=== PATIENT | female | born 1975 | race Caucasian/White ===

== ENCOUNTER → 2016-10-03 | Outpatient (CLI) | payer BC ==
[2016-10-03 12:37] LABS: MEAN CELL VOLUME 92 fl (80.0-100.0); MEAN CORPUSCULAR HGB CONC 33 g/dl (33.0-37.0); MEAN PLATELET VOLUME 10.7 fl (7.4-10.4); PLATELET COUNT 376 K/mm3 (130-400); RED BLOOD COUNT 3.79 M/mm3 (4.10-5.30); REDCELL DISTRIBUTION WIDTH-CV 12.5 % (11.5-14.5); WHITE BLOOD COUNT 8.8 K/mm3 (4.8-10.8)
[2016-10-03 12:40] LABS: ADJUSTED CALCIUM 9.5 mg/dL (8.4-10.2); ALBUMIN 4.3 gm/dL (3.5-5.0); BILIRUBIN,TOTAL 0.6 mg/dL (0.0-1.0); CALCIUM 9.7 mg/dL (8.4-10.2); CREATININE, serum 0.65 mg/dL (0.52-1.25); HEMATOCRIT 34.7 % (37.0-47.0); HEMOGLOBIN 11.5 g/dl (12.5-16.0); MEAN CORPUSCULAR HEMOGLOBIN 30 pg (27.0-31.0); POTASSIUM 3.9 mmol/L (3.4-5.0); TOTAL PROTEIN 8.5 gm/dL (6.4-8.2)
[2016-10-03 12:43] LABS: PH 5 (5-8); SQUAMOUS EPITHELIAL 0-2 /hpf; URINE APPEARANCE Clear; URINE BACTERIA Moderate /hpf; URINE BILIRUBIN Negative (NEGATIVE); URINE BLOOD 3+ (NEGATIVE); URINE COLOR Yellow; URINE GLUCOSE Negative (NEGATIVE); URINE KETONE 1+ (NEGATIVE); URINE RBC 20-50 /hpf; URINE UROBILINOGEN Negative (NEGATIVE)
== END ==
LOC: COL.LAB 11:49
DX: M54.5 Low back pain (principal); R00.2 Palpitations; R06.02 Shortness of breath

== ENCOUNTER → 2016-12-05 | Outpatient (CLI) | payer BC | LOC: COL.RAD 07:30 | DX: R31.21 Asymptomatic microscopic hematuria (principal); Z90.49 Acquired absence of other specified parts of digestive tract | CPT/HCPCS: Q9967 ==

== ENCOUNTER → 2016-12-07 | Outpatient (CLI) | payer BC | LOC: COL.RAD 09:24 | DX: Z53.9 Procedure and treatment not carried out, unspecified reason (principal) ==

== ENCOUNTER → 2017-03-12 | Outpatient (CLI) | payer BC | LOC: MC.RAD 08:40 | DX: Z12.31 Encounter for screening mammogram for malignant neoplasm of breast (principal) ==

== ENCOUNTER → 2018-04-05 | Outpatient (CLI) | payer BC | LOC: MC.RAD 13:13 | DX: Z12.31 Encounter for screening mammogram for malignant neoplasm of breast (principal) ==

== ENCOUNTER 2019-02-19 08:21 | Observation (INO) | payer BC ==
[~2019-02-19] VITALS: Ht 165.1 cm; Wt 64.3 kg
[2019-02-19 09:14] LABS: BASO % 0.3 % (0.0-2.0); EOS # 0.1 (0.0-0.7); EOS % 0.7 % (0-4.0); GRAN # 6.7 (1.4-6.5); GRAN % 73.6 % (42.2-75.2); HEMOGLOBIN 12.1 g/dl (12.5-16.0); LYMPH # 1.9 (1.2-3.4); LYMPH % 21.3 % (20.0-51.0); MEAN CELL VOLUME 94 fl (80.0-100.0); MEAN CORPUSCULAR HEMOGLOBIN 31 pg (27.0-31.0); MEAN CORPUSCULAR HGB CONC 34 g/dl (33.0-37.0); MEAN PLATELET VOLUME 10.4 fl (7.4-10.4); MONO # 0.4 (0.1-0.6); PLATELET COUNT 304 K/mm3 (130-400); RED BLOOD COUNT 3.85 M/mm3 (4.10-5.30); REDCELL DISTRIBUTION WIDTH-CV 12.9 % (11.5-14.5)
[2019-02-19 09:27] LABS: ALANINE AMINOTRANSFERASE < 6 U/L (9-52); ALKALINE PHOSPHATASE 45 U/L (50-136); ANION GAP 10 mmol/L (7-16); AST,SGOT 20 U/L (15-37); BILIRUBIN,TOTAL 0.4 mg/dL (0.0-1.0); BLOOD UREA NITROGEN 12 mg/dL (7-17); CALCIUM 8.9 mg/dL (8.4-10.2); CARBON DIOXIDE 22 mmol/L (22-30); CHLORIDE 108 mmol/L (98-107); CREATININE, serum 0.69 (0.52-1.25); GLUCOSE 96 mg/dL (74-106); POTASSIUM 4.1 mmol/L (3.4-5.0); SODIUM 140 mmol/L (137-145); TOTAL PROTEIN 7.5 gm/dL (6.4-8.2)
--- NOTE | 2019-02-19 12:36 | NUR ---
RECEIVED FROM KAYLENE OROZCO.
[2019-02-19 12:58] VITALS: BP 136/72; PULSE 69; TEMP 98.9
--- NOTE | 2019-02-19 13:46 | NUR ---
PT ARRIVED TO ROOM 316 VIA WHEELCHAIR.PT ORIENTED TO ROOM.FAMILY AT BEDSIDE.
--- NOTE | 2019-02-19 13:47 | NUR ---
PT TAKEN TO MRI
--- NOTE | 2019-02-19 14:10 | NUR ---
PT RETURNED TO ROOM FROM MRI.
[2019-02-19] MEDS ORDERED: LO LOESTRIN FE1 TAB PO (14:42)
--- NOTE | 2019-02-19 15:00 | NUR ---
Assessment complete.patient awake,a/ox3.denie pain or discomfort at this time.lung sounds clear to aus.breathing even and unlabored.neuro chesks WNL.patient reports numbness and tingling to left face and left upper and lower extremity.gait is stable.no visible deficit.patient denies any other concerns at this time.will continue to monitor.call light in reach
[2019-02-19 16:36] VITALS: BP 147/73; PULSE 77; TEMP 98.7
--- NOTE | 2019-02-19 18:18 | NUR ---
pt reports having anxiety r/t her Multiple sclerosis workout and mood is down. here rounding on patient at this time.pt has had family visiting all shift. will continue to monitor.call light in reach
--- NOTE | 2019-02-19 18:55 | NUR ---
report given to KAYLENE Melendez.
[2019-02-19 19:46] VITALS: BP 148/79; PULSE 68; TEMP 98.8
--- NOTE | 2019-02-19 20:02 | NUR ---
Resting in bed with family at bedside. Assessment complete. Lungs clear. Heart sounds normal. Bowels active x4. Pulses strong throughout. No edema. Hand property underwriter equal. Neuro check normal. Reports "tingling in left face, left arm, and left leg." Reports no change from previous feeling. Denies pain. Denies needs at this time. Will monitor.
--- NOTE | 2019-02-19 22:39 | NUR ---
Resting in bed. provided with water and sprite. Denies needs. call light in reach.
[2019-02-19 23:24] VITALS: BP 132/73; PULSE 68; TEMP 98.6
--- NOTE | 2019-02-20 04:18 | NUR ---
Resting in bed. Denies needs. Call light in reach.
[2019-02-20 04:28] VITALS: BP 129/74; PULSE 64; TEMP 98.6
--- NOTE | 2019-02-20 06:55 | NUR ---
RECEIVED REPORT FROM KAYLENE EVANS.
--- NOTE | 2019-02-20 07:07 | NUR ---
Report given to KAYLENE Huerta. Uneventful night. Tearful this AM. Denies needs. Call light in reach.
[2019-02-20 07:22] LABS: BASO % 0.4 % (0.0-2.0); EOS # 0.1 (0.0-0.7); EOS % 1.2 % (0-4.0); GRAN % 54.4 % (42.2-75.2); HEMATOCRIT 39.8 % (37.0-47.0); HEMOGLOBIN 13.1 g/dl (12.5-16.0); LYMPH # 2.7 (1.2-3.4); LYMPH % 37.4 % (20.0-51.0); MEAN CELL VOLUME 94 fl (80.0-100.0); MEAN CORPUSCULAR HEMOGLOBIN 31 pg (27.0-31.0); MEAN CORPUSCULAR HGB CONC 33 g/dl (33.0-37.0); MEAN PLATELET VOLUME 10.5 fl (7.4-10.4); MONO # 0.5 (0.1-0.6); MONO % 6.5 % (1.7-9.3); PLATELET COUNT 351 K/mm3 (130-400); RED BLOOD COUNT 4.24 M/mm3 (4.10-5.30)
--- NOTE | 2019-02-20 07:38 | NUR ---
Assessment complete.patient awake,a/ox3.denies pain or discomfort at this time.LSCTA.breathing even and unlabored.patient reports tingling to left side.gait remains stable.pt mood remains low regarding MS workup.lumbar puncture scheduled for late this morning.family at bedside.pt denies any need at this time.will continue to monitor.call light in reach
--- NOTE | 2019-02-20 09:35 | NUR ---
Initial visit; Patient and her thanked [employer] Operator for looking in on her and offering God's blessings.
[2019-02-20 09:50] VITALS: BP 121/73; BP 174/68; PULSE 69; PULSE 90; TEMP 98.2; TEMP 98.9
--- NOTE | 2019-02-20 11:55 | NUR ---
pt returned to room from Lumbar puncture.pt oriented regarding needed flat time of 2hours.patient vss.denies any needs at this time.will continue to monitor.call light in reach
[2019-02-20] MEDS ORDERED: ASPIRIN 81M81 MG/TA2 PO (12:08)
[2019-02-20 12:34] VITALS: BP 132/73; PULSE 64; TEMP 98.6
[2019-02-20 12:48] LABS: TOTAL PROTEIN,CSF 55 mg/dL (15-45)
[2019-02-20 13:12] LABS: CSF APPEARANCE CLEAR; CSF COLOR COLORLESS; CSF MONONUCLEAR 100 % (70-100); CSF POLYMORPHONUCLEAR 0 % (0-6); CSF RBC 47 /mm3 (0-0)
--- NOTE | 2019-02-20 14:48 | NUR ---
PT DISCHARGE HOME AT THIS TIME.ALL DISCHARGE INSTRUCTIONS REVIEWED.IV DISCONTINUED.PT VOICED UNDERSTANDING AND ALL QUESTIONS ANSWERED.ALL BELONGINGS TAKEN.VC STAFF ESCORTED PATIENT OUT.
--- NOTE | 2019-02-20 14:50 | NUR ---
SW unable to meet with patient before discharge.
[2019-02-21 01:42] LABS: SJOGRENS SSB 22 U/mL (0-99)
[2019-02-21 08:55] LABS: LYME DISEASE ANTIBODIES Negative (Negative)
== END 2019-02-20 14:57 | disposition home or self-care (01) ==
LOC: COL.ER 08:21 → MEDICAL 11:29
PROVIDERS: Emergency Medicine; Physician Assistant; Psychiatry & Neurology Neurology; ADMIT Internal Medicine
DX: R20.2 Paresthesia of skin (principal); Z79.82 Long term (current) use of aspirin; Z90.49 Acquired absence of other specified parts of digestive tract; Z82.49 Family history of ischemic heart disease and other diseases of the circulatory system; Z80.52 Family history of malignant neoplasm of bladder
CPT/HCPCS: A9585; G0378

== ENCOUNTER → 2019-05-01 | Outpatient (CLI) | payer BC ==
[~2019-05-01] MED LIST: ASPIRIN 81M81 MG/TA2 PO; LO LOESTRIN FE1 TAB PO
== END ==
LOC: MC.RAD 04-10 16:00
DX: Z12.31 Encounter for screening mammogram for malignant neoplasm of breast (principal); N63.20 Unspecified lump in the left breast, unspecified quadrant

== ENCOUNTER → 2019-05-06 | Outpatient (CLI) | payer BC | LOC: MC.RAD 09:28 | DX: N63.20 Unspecified lump in the left breast, unspecified quadrant (principal) ==

== ENCOUNTER → 2019-11-10 | Outpatient (CLI) | payer BC | LOC: MC.RAD 14:04 | DX: N60.02 Solitary cyst of left breast (principal) ==

== ENCOUNTER → 2020-06-08 | Outpatient (CLI) | payer BC | LOC: MC.RAD 08:28 | DX: Z12.31 Encounter for screening mammogram for malignant neoplasm of breast (principal) ==